=== PATIENT | male | born 1985 | race African-American/Black ===

== ENCOUNTER 2019-12-27 09:44 | Emergency (ER) | payer SELFPAY ==
[2019-12-27] MEDS ORDERED: Diphtheria,Pertussis(Acell),Tetanus Vaccine 0.5 ML Syringe IM ONE (10:05)
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
[2019-12-27] MEDS ORDERED: Lidocaine 1% with EPINEPHrine 1:100,000 20 ML MDV INJECT ONE (11:02)
[2019-12-27] MEDS ORDERED: Bupivacaine 0.5% 10 ML SDV INJECT ONE (11:02)
== END 2019-12-27 12:33 | disposition home or self-care (01) ==
LOC: JD.ED 09:44
DX: S41.112A Laceration without foreign body of left upper arm, initial encounter (principal); F17.210 Nicotine dependence, cigarettes, uncomplicated; E66.9 Obesity, unspecified; Z68.41 Body mass index [BMI] 40.0-44.9, adult; Z23 Encounter for immunization; X99.8XXA Assault by other sharp object, initial encounter
CPT/HCPCS: 12002; 73060; 90471; 90715; 99284; J3490; 99283